=== PATIENT | male | born 1975 | race Caucasian/White ===

== ENCOUNTER 2017-05-31 13:23 | Emergency (ER) | payer SELFPAY ==
[~2017-05-31] VITALS: Ht 180.3 cm; Wt 104.1 kg
[2017-05-31 13:25] VITALS: TEMP 96.2
[2017-05-31] MEDS ORDERED: PRINIVIL20 MG PO (13:44)
[2017-05-31 14:27] LABS: BASO # 0.1 (0.0-0.2); BASO % 0.5 % (0.0-2.0); EOS # 0.1 (0.0-0.7); EOS % 1.5 % (0-4.0); GRAN # 6.4 (1.4-6.5); GRAN % 70.2 % (42.2-75.2); HEMATOCRIT 45.9 % (42.0-52.0); HEMOGLOBIN 15.9 g/dl (13.5-18.0); LYMPH # 1.8 (1.2-3.4); LYMPH % 19.5 % (20.0-51.0); MEAN CELL VOLUME 92 fl (80.0-100.0); MEAN CORPUSCULAR HEMOGLOBIN 32 pg (27.0-31.0); MEAN CORPUSCULAR HGB CONC 35 g/dl (33.0-37.0); MEAN PLATELET VOLUME 10.5 fl (7.4-10.4); MONO # 0.7 (0.1-0.6); PLATELET COUNT 303 K/mm3 (130-400); RED BLOOD COUNT 4.97 M/mm3 (4.20-5.60); WHITE BLOOD COUNT 9.1 K/mm3 (4.8-10.8)
[2017-05-31 14:39] LABS: CALCIUM 9.2 mg/dL (8.4-10.2); CREATININE, serum 0.88 mg/dL (0.66-1.25); POTASSIUM 3.8 mmol/L (3.4-5.0)
[2017-05-31] MEDS ORDERED: CATAPRES 0.1MG0.1 MG PO (14:45)
[2017-05-31] MEDS ORDERED: FLEXERIL 1010 MG/TAB PO (14:45)
[2017-05-31] MEDS ORDERED: PRINIVIL40 MG PO (14:45)
[2017-05-31 15:42] VITALS: BP 160/112; PULSE 76
== END 2017-05-31 15:45 | disposition home or self-care (01) ==
LOC: COL.ER 13:23
PROVIDERS: Emergency Medicine
DX: M54.10 Radiculopathy, site unspecified (principal); I10 Essential (primary) hypertension; F17.210 Nicotine dependence, cigarettes, uncomplicated
CPT/HCPCS: J1170; J1885